=== PATIENT | female | born 1975 | race Caucasian/White ===

== ENCOUNTER 2017-01-30 13:58 | Emergency (ER) | payer MEDICARE, MEDICAID ==
[~2017-01-30] VITALS: Ht 160 cm; Wt 65.8 kg
[~2017-01-30 13:58] MED LIST: CLAR-19 PO; EES; HYDR-34; MORPHINE; NAPR-243; TRM50T
[2017-01-30] MEDS ORDERED: DIAZEPAM INJ 10 MG/2 ML (VALIUM) SYR IV STA (14:10)
[2017-01-30] MEDS ORDERED: DIAZEPAM INJ 10 MG/2 ML (VALIUM) SYR ONE (14:16)
[2017-01-30 14:22] LABS: BASOPHILS # (AUTO) 0.1 10^3/uL (0.0-0.1); BASOPHILS % (AUTO) 1 % (0-10); EOSINOPHILS # (AUTO) 0.2 10^3/uL (0.0-0.3); EOSINOPHILS % (AUTO) 2 % (0-10); LYMPHOCYTES # (AUTO) 2.7 X 10^3 (1.0-4.0); LYMPHOCYTES % (AUTO) 29 % (12-44); MEAN CORPUSCULAR HEMOGLOBIN 33 PG (25-34); MEAN CORPUSCULAR HGB CONC 34 G/DL (32-36); MEAN CORPUSCULAR VOLUME 95 FL (80-99); MEAN PLATELET VOLUME 10.8 FL (7.4-10.4); MONOCYTES # (AUTO) 0.6 X 10^3 (0.0-1.0); MONOCYTES % (AUTO) 7 % (0-12); NEUTROPHILS # (AUTO) 5.6 X 10^3 (1.8-7.8); NEUTROPHILS % (AUTO) 61 % (42-75); PLATELET COUNT 305 10^3/uL (130-400); RED BLOOD COUNT 4.37 10^6/uL (4.35-5.85); WHITE BLOOD COUNT 9.2 10^3/uL (4.3-11.0)
--- NOTE | 2017-01-30 14:24 | ED Neurological Problem ---
General Chief Complaint: Neurological Problems Stated Complaint: SEIZURE Nursing Triage Note: to ED 8 by [facility] with reports of possible seizure activity. Patient denies seizure history, but reports that she feels anxious right now. 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 Nursing Sepsis Screen: No Definite Risk History of Present Illness Time seen by provider: 14:00 Initial Comments Evaluation post seizure. The patient reports that she had similar activity approximately one month ago, evaluated by EMS but was not transported to the hospital per patient refusal. She denies a history of seizure disorder. She does report increased anxiety. There was no incontinence at the time of the seizure. It was witnessed by her daughter. EMS reports that she was lying on the floor upon their arrival. The patient denies knowing how she got to the floor. She denies any pain at this time. She continues to have anxiety at this time and nausea, there are right leg spasms that she reports is secondary to anxiety. Timing/Duration: 1 hour Severity: mild Associated Symptoms: No confusion, No fatigue, No fever/chills, No insomnia, No loss of consciousness, muscle spasms (right lower extremity), nausea/vomiting , No numbness in legs/feet, No paresthesia, No ringing in ears, seizures, No sleepy, No slurred speech, No tingling in legs/feet, No trouble walking, No vision changes, No weakness Allergies and Home Medications Allergies Coded Allergies: Penicillins (Verified Allergy, Unknown, 10/07/06) Home Medications Alprazolam 0.25 Mg Tablet, 0.25 MG PO Q8H PRN for ANXIETY, #15 Ref 0 Prescribed by: ALANNA FERREIRA on 01/30/17 1548 Tramadol Hcl 50 Mg Tab, (Reported) Constitutional: no symptoms reported, see HPI Eyes: No Symptoms Reported, See HPI Ears, Nose, Mouth, Throat: no symptoms reported, see HPI Respiratory: no symptoms reported, see HPI Cardiovascular: no symptoms reported, see HPI Gastrointestinal: see HPI, No abdominal pain, No constipation, No diarrhea, nausea, No vomiting Genitourinary: no symptoms reported, see HPI Musculoskeletal: no symptoms reported, see HPI Skin: no symptoms reported, see HPI Psychiatric/Neurological: See HPI, Anxiety Endocrine: No Symptoms Reported, See HPI Hematologic/Lymphatic: No Symptoms Reported, See HPI All Other Systems Reviewed Negative Unless Noted: Yes Past Fxjkcwq-Qyfqoi-Qiigja Hx Patient Social History Alcohol Use: Past History Recreational Drug Use: No Smoking Status: Current Everyday Smoker Type Used: Cigarettes 2nd Hand Smoke Exposure: Yes Recent Foreign Travel: No Contact w/Someone Who Travel: No Recent Infectious Disease Expo: No Recent Hopitalizations: No Immunizations Up To Date Tetanus Booster (TDap): Less than 5yrs Seasonal Allergies Seasonal Allergies: No Surgeries Surgeries: Tubal Ligation Musculoskeletal Hx Musculoskeletal Disorders: Yes (scoliosis) Reviewed Nursing Assessment Reviewed/Agree w Nursing PMH: Yes Physical Exam Vital Signs Vital Sign - Last 12Hours 01/30/17 14:05 Temp 96.9 Pulse 98 Resp 22 B/P (MAP) 135/101 Pulse Ox 98 O2 Delivery Room Air Capillary Refill : Less Than 3 Seconds General Appearance: WD/WN, no apparent distress HEENT: PERRL/EOMI, normal ENT inspection Neck: non-tender, full range of motion, supple, normal inspection, No lymphadenopathy (R), No lymphadenopathy (L) Respiratory: chest non-tender, lungs clear, normal breath sounds, no respiratory distress Cardiovascular: normal peripheral pulses, regular rate, rhythm, no murmur, tachycardia Gastrointestinal: normal bowel sounds, non tender, soft, no organomegaly, no pulsatile mass Back: normal inspection, no CVA tenderness, no vertebral tenderness Extremities: normal range of motion, non-tender, normal inspection, other ( spasms right lower extremity) 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 nml as tested (grossly intact), no motor/ sensory deficits, alert, normal mood/affect, oriented x 3 Crainal Nerves: normal hearing, normal speech, PERRL, No facial asymmetry, No facial droop Coordination/Gait: normal finger to nose, normal gait, negative Romberg's sign , No abnormal gait Motor/Sensory: no motor deficit, no sensory deficit, no pronator drift, negative Babinski's sign Skin: normal color, warm/dry Lymphatic: no adenopathy Progress/Results/Core Measures Results/Orders Lab Results Laboratory Tests Test 01/30/17 14:15 Range/Units White Blood Count 9.2 4.3-11.0 10^3/uL Red Blood Count 4.37 4.35-5.85 10^6/uL Hemoglobin 14.2 11.5-16.0 G/DL Hematocrit 42 35-52 % Mean Corpuscular Volume 95 80-99 FL Mean Corpuscular Hemoglobin 33 25-34 PG Mean Corpuscular Hemoglobin Concent 34 32-36 G/DL Red Cell Distribution Width 12.0 10.0-14.5 % Platelet Count 305 130-400 10^3/uL Mean Platelet Volume 10.8 H 7.4-10.4 FL Neutrophils (%) (Auto) 61 42-75 % Lymphocytes (%) (Auto) 29 12-44 % Monocytes (%) (Auto) 7 0-12 % Eosinophils (%) (Auto) 2 0-10 % Basophils (%) (Auto) 1 0-10 % Neutrophils # (Auto) 5.6 1.8-7.8 X 10^3 Lymphocytes # (Auto) 2.7 1.0-4.0 X 10^3 Monocytes # (Auto) 0.6 0.0-1.0 X 10^3 Eosinophils # (Auto) 0.2 0.0-0.3 10^3/uL Basophils # (Auto) 0.1 0.0-0.1 10^3/uL Sodium Level 139 135-145 MMOL/L Potassium Level 3.4 L 3.6-5.0 MMOL/L Chloride Level 105 98-107 MMOL/L Carbon Dioxide Level 24 21-32 MMOL/L Anion Gap 10 5-14 MMOL/L Blood Urea Nitrogen 13 7-18 MG/DL Creatinine 0.89 0.60-1.30 MG/DL Estimat Glomerular Filtration Rate > 60 BUN/Creatinine Ratio 15 Glucose Level 116 H 70-105 MG/DL Calcium Level 9.5 8.5-10.1 MG/DL Total Bilirubin 0.2 0.1-1.0 MG/DL Aspartate Amino Transf (AST/SGOT) 18 5-34 U/L Alanine Aminotransferase (ALT/SGPT) 19 0-55 U/L Alkaline Phosphatase 44 40-136 U/L Total Protein 7.0 6.4-8.2 G/DL Albumin 4.1 3.2-4.5 G/DL Thyroid Stimulating Hormone (TSH) 3.29 0.35-4.94 UIU/ML Serum Alcohol < 10 <10 MG/DL My Orders Orders - ALANNA FERREIRA Alcohol (01/30/17 14:10) Cbc With Automated Diff (01/30/17 14:10) Comprehensive Metabolic Panel (01/30/17 14:10) Thyroid Stimulating Hormone (01/30/17 14:10) Diazepam Injection (Valium Injection) (01/30/17 14:10) Diazepam Injection (Valium Injection) (01/30/17 14:16) Vital Signs/I&O Vital Sign - Last 12Hours 01/30/17 01/30/17 14:05 15:54 Temp 96.9 Pulse 98 73 Resp 22 18 B/P (MAP) 135/101 Pulse Ox 98 98 O2 Delivery Room Air Blood Pressure Mean: 112 Progress Note : Time: 14:00 Progress Note Initial evaluation completed, will obtain lab workup and reevaluate. Valium 2 mg IV for anxiety and muscle spasms. 1445 labs all within normal limits, patient ambulated to bathroom unable to provide urine sample. Gait steady, negative Romberg. 1515 patient has strength 2 glasses of water, still unable to provide urine sample. No seizure activity and no longer having spasms in the right lower extremity. Discussed plans discharge home she will follow-up with her primary care provider for further evaluation of these seizures. Departure Impression Impression: Primary Impression: Seizure Disposition: HOME, SELF-CARE Condition: Improved Departure-Patient Inst. Decision time for Depature: 15:30 Referrals: NO,LOCAL PHYSICIAN (PCP/Family) Primary Care Physician Patient Instructions: Seizures, Adult (DC) Add. Discharge Instructions: Follow-up with primary care provider for seizure treatment. Return to emergency department for seizure activity, chest pain, or new problems. 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 All discharge instructions reviewed with patient and/or family. Voiced understanding. Scripts Alprazolam (Xanax) 0.25 Mg Tablet 0.25 MG PO Q8H Y for ANXIETY, #15 TAB 0 Refills Prov: JHONALANNA 01/30/17 ALANNA FERREIRA January 30, 2017 14:24
[2017-01-30 14:44] LABS: ALANINE AMINOTRANSFERASE 19 U/L (0-55); ALBUMIN 4.1 G/DL (3.2-4.5); ANION GAP 10 MMOL/L (5-14); ASPARTATE AMINO TRANSFERASE 18 U/L (5-34); BILIRUBIN,TOTAL 0.2 MG/DL (0.1-1.0); BLOOD UREA NITROGEN 13 MG/DL (7-18); BUN/CREATININE RATIO 15; CALCIUM 9.5 MG/DL (8.5-10.1); CARBON DIOXIDE 24 MMOL/L (21-32); CHLORIDE 105 MMOL/L (98-107); CREATININE SERUM 0.89 MG/DL (0.60-1.30); GFR ESTIMATED > 60; GLUCOSE 116 MG/DL (70-105); POTASSIUM 3.4 MMOL/L (3.6-5.0); SODIUM 139 MMOL/L (135-145)
[2017-01-30 14:50] LABS: ALCOHOL < 10 MG/DL (<10)
[2017-01-30 15:03] LABS: THYROID STIMULATING HORMONE 3.29 UIU/ML (0.35-4.94)
[2017-01-30] MEDS ORDERED: ALPR0.25 PO (15:48)
[2017-01-30 15:54] VITALS: BP 123/93
== END 2017-01-30 15:54 | disposition home or self-care (01) ==
LOC: EDUNIT# 13:58 → ER 14:00
DX: G40.909 Epilepsy, unspecified, not intractable, without status epilepticus (principal); F41.9 Anxiety disorder, unspecified; R11.0 Nausea; F17.210 Nicotine dependence, cigarettes, uncomplicated
CPT/HCPCS: 36415; 80053; 80320; 84443; 85025; 96374; 99283

== ENCOUNTER 2019-05-22 14:01 | Emergency (ER) | payer MEDICARE, MEDICAID ==
[~2019-05-22] VITALS: Ht 160 cm; Wt 65.8 kg
[~2019-05-22 14:01] MED LIST changes: +ALPR0.25 PO
--- NOTE | 2019-05-22 14:11 | ED General ---
General Chief Complaint: General Problems/Pain Stated Complaint: WITHDRAWL FROM MEDICATION Nursing Triage Note: Patient reports running out of tramadol yesterday and having n/v/d today Nursing Sepsis Screen: No Definite Risk Source of Information: Patient Exam Limitations: No Limitations History of Present Illness Date Seen by Provider: May 22, 2019 Time Seen by Provider: 14:09 Initial Comments To ER with nausea, muscle aches, diarrhea, headache. States that she took her last ultram yesterday, states she's been taking extra so she ran out early. She takes these for scoliosis. She had a quantity of 240 of them, a 30 day supply filled on 04/27/19. Timing/Duration: 1-2 Days Severity: Moderate Associated Systoms: Headaches, Nausea/Vomiting Allergies and Home Medications Allergies Coded Allergies: Penicillins (Verified Allergy, Unknown, 10/07/06) Home Medications Alprazolam 0.25 Mg Tablet, 0.25 MG PO Q8H PRN for ANXIETY Prescribed by: ALANNA FERREIRA on 01/30/17 6758 Patient Home Medication List Home Medication List Reviewed: Yes Review of Systems Review of Systems Constitutional: see HPI EENTM: see HPI Respiratory: no symptoms reported Cardiovascular: no symptoms reported Genitourinary: no symptoms reported Musculoskeletal: no symptoms reported Skin: no symptoms reported Past Htbddde-Mwqblv-Dfbveq Hx Patient Social History Alcohol Use: Denies Use Recreational Drug Use: No Type Used: Cigarettes 2nd Hand Smoke Exposure: Yes Recent Foreign Travel: No Contact w/Someone Who Travel: No Recent Infectious Disease Expo: No Recent Hopitalizations: No Immunizations Up To Date Tetanus Booster (TDap): Less than 5yrs Seasonal Allergies Seasonal Allergies: No Past Medical History Surgeries: Yes Tubal Ligation Respiratory: No Cardiac: No Neurological: No Genitourinary: No Gastrointestinal: No Musculoskeletal: No Endocrine: No HEENT: No Cancer: No Psychosocial: No Integumentary: No Physical Exam Vital Signs Vital Signs - First Documented 05/22/19 14:07 Temp 98.2 Pulse 97 Resp 18 B/P (MAP) 185/118 (140) Pulse Ox 100 Capillary Refill : Less Than 3 Seconds Height, Weight, BMI Height: 5'3.00" Weight: 145lbs. oz. 65.072016lm; BMI Method:Stated General Appearance: No Apparent Distress, WD/WN, Other (piloerection, tachycardia noted) Eyes: Bilateral Eye Normal Inspection, Bilateral Eye PERRL, Bilateral Eye EOMI HEENT: PERRL/EOMI, TMs Normal Neck: Full Range of Motion, Normal Inspection Respiratory: No Accessory Muscle Use, No Respiratory Distress Cardiovascular: Normal Peripheral Pulses, Tachycardia (slightly tachycardic at about 100-105) Gastrointestinal: Normal Bowel Sounds, Non Tender, Soft Extremity: Normal Capillary Refill, Normal Inspection Neurologic/Psychiatric: Alert, Oriented x3 Skin: Normal Color, Warm/Dry Progress/Results/Core Measures Suspected Sepsis Recent Fever Within 48 Hours: No Infection Criteria Present: None New/Unexplained Altered Menta: No Sepsis Screen: No Definite Risk SIRS Temperature:98.2 Pulse: 97 Respiratory Rate: 18 Blood Pressure 185 /118 Mean: 140 Results/Orders My Orders Orders - KINGSLEY GARDNER APRN Hydroxyzine Cap/Tab (Vistaril) (05/22/19 14:15) Ondansetron Oral Dissolve Tab (Zofran (05/22/19 14:15) Clonidine Tablet (Catapres Tablet) (05/22/19 14:15) Vital Signs/I&O 05/22/19 14:07 Temp 98.2 Pulse 97 Resp 18 B/P (MAP) 185/118 (140) Pulse Ox 100 Capillary Refill : Less Than 3 Seconds Blood Pressure Mean: 140 Departure Impression Primary Impression: Withdrawal from opioids Disposition: 01 HOME, SELF-CARE Condition: Stable Departure-Patient Inst. Referrals: SIMONE EDMONDSON DO (PCP/Family) Primary Care Physician KINGSLEY GARDNER APRN May 22, 2019 14:11
[2019-05-22] MEDS ORDERED: ONDANSETRON 4 MG (ZOFRAN) ORAL DISSOLVE TAB PO ONE (14:15)
[2019-05-22] MEDS ORDERED: cloNIDine 0.1 MG (CATAPRES) TAB PO ONE (14:15)
[2019-05-22] MEDS ORDERED: hydrOXYzine (VISTARIL/ATARAX) 25 MG capsule/tablet PO ONE (14:15)
[2019-05-22 15:03] VITALS: BP 158/100
== END 2019-05-22 15:05 | disposition home or self-care (01) ==
LOC: EDUNIT# 14:01 → ER 14:02
DX: F11.23 Opioid dependence with withdrawal (principal); Z88.0 Allergy status to penicillin; Z77.22 Contact with and (suspected) exposure to environmental tobacco smoke (acute) (chronic); Z98.51 Tubal ligation status
CPT/HCPCS: 99283

== ENCOUNTER 2021-12-08 23:12 | Emergency (ER) | payer MEDICARE, MEDICAID ==
[~2021-12-08] VITALS: Ht 160 cm; Wt 66.0 kg
[2021-12-08] MEDS ORDERED: CLN.1T (23:33)
[2021-12-08] MEDS ORDERED: LISI20TA26 (23:33)
[2021-12-08] MEDS ORDERED: HYDR-3820 (23:33)
--- NOTE | 2021-12-08 23:58 | ED Cardiac General ---
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 Source: patient Exam Limitations: no limitations History of Present Illness Date Seen by Provider: Dec 08, 2021 Time Seen by Provider: 23:28 Initial Comments Patient and her significant other present to the ER by private conveyance with chief complaint that when she woke up she felt that her heart was pounding in h er chest and she took her blood pressure and it was elevated 160s systolic. She is not taking her lisinopril routinely. She was only recently started on blood pressure medicines by Dr. Edmondson. She was also started on clonidine to be used as needed for blood pressure over 170. She remembers taking 1 this morning. She took another 1 at 1030 tonight and by the time she arrived here her blood pressure is much better she is no longer having any palpitations and has not had any chest pains numbness tingling shortness of breath. No history of coronary disease. She only recently was diagnosed with high blood pressure. She has been worked up several times for her scoliosis. No nausea or vomiting. Her symptoms are gone by the time the provider visited with her. 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 Allergies and Home Medications Allergies Coded Allergies: Penicillins (Verified Allergy, Unknown, 10/07/06) Patient Home Medication List Home Medication List Reviewed: Yes Clonidine HCl (Clonidine HCl) 0.1 Mg Tablet, (Reported) Entered as Reported by: ELLIOT ROLON on 12/08/212332 Last Action: New Order Hydrocodone/Acetaminophen (Hydrocodone-Acetamin 10-325 mg) 1 Each Tablet, (Reported) Entered as Reported by: ELLIOT ROLON on 12/08/212332 Last Action: New Order Lisinopril (Lisinopril) 20 Mg Tablet, (Reported) Entered as Reported by: ELLIOT ROLON on 12/08/212332 Last Action: New Order Discontinued Medications Alprazolam (Xanax) 0.25 Mg Tablet, 0.25 MG PO Q8H PRN for ANXIETY Discontinued Reason: Duplicate Order Prescribed by: ALANNA FERREIRA on 01/30/17 0178 Last Action: Discontinued Tramadol Hcl (Ultram) 50 Mg Tab, (Reported) Discontinued Reason: Duplicate Order Entered as Reported by: TRACI SHUBHAM on 07/04/09 0042 Last Action: Discontinued Review of Systems Review of Systems Constitutional: No chills, No diaphoresis EENTM: No Blurred Vision, No Double Vision Respiratory: Denies Cough, Denies Shortness of Air Cardiovascular: Denies Chest Pain, Denies Edema, Denies Irregular Heart Rate, Denies Lightheadedness Gastrointestinal: Denies Constipated, Denies Diarrhea, Denies Nausea Genitourinary: Denies Burning, Denies Discharge Musculoskeletal: No back pain, No joint pain All Other Systems Reviewed Negative Unless Noted: Yes Past Czvfbpq-Wlpeza-Lscann Hx Patient Social History Tobacco Use?: Yes Tobacco type used: Cigarettes Substance use?: No Alcohol Use?: No Pt feels they are or have been: No Immunizations Up To Date Tetanus Booster (TDap): Less than 5yrs Seasonal Allergies Seasonal Allergies: No Past Medical History Surgery/Hospitalization HX: scoliosis, htn Surgeries: Yes Tubal Ligation Respiratory: No Cardiac: No Neurological: No Genitourinary: No Gastrointestinal: No Musculoskeletal: No Endocrine: No HEENT: No Cancer: No Psychosocial: No Integumentary: No Physical Exam Vital Signs Vital Signs - First Documented 12/08/21 23:25 Temp 36.0 Pulse 86 Resp 16 B/P (MAP) 164/114 (131) Pulse Ox 99 O2 Delivery Room Air Capillary Refill : Less Than 3 Seconds Height, Weight, BMI Height: 5'3.00" Weight: 145lbs. oz. 65.965158rk; 25.00 BMI Method:Stated General Appearance: No Apparent Distress, WD/WN HEENT: PERRL/EOMI, Pharynx Normal, Moist Mucous Membranes Neck: Full Range of Motion, Normal Inspection Respiratory: No Accessory Muscle Use, No Respiratory Distress Cardiovascular: Regular Rate, Rhythm, No Edema, Normal Peripheral Pulses Extremity: Normal Inspection, No Pedal Edema Neurologic/Psychiatric: Alert, Oriented x3 Progress/Results/Core Measures Results/Orders Vital Signs/I&O 12/08/21 23:25 Temp 36.0 Pulse 86 Resp 16 B/P (MAP) 164/114 (131) Pulse Ox 99 O2 Delivery Room Air Blood Pressure Mean: 131 Progress Progress Note : Time: 23:56 Progress Note The patient is asymptomatic at this time and is ready to go home. We did explain to her that lisinopril should be taken on a daily basis. Her blood pressure is 140 over 90s upon arrival of this provider. Was suggested that she would get better control if she takes lisinopril on a regular basis. She may be having some rebound hypertension related to the clonidine so we suggest that she strictly use the lisinopril on a routine basis and follow-up with Dr. Edmondson. Return precautions were discussed. Questions were answered. Departure Impression Primary Impression: Hypertension Qualified Codes: I10 - Essential (primary) hypertension Disposition: HOME, SELF-CARE Condition: Stable Departure-Patient Inst. Decision time for Depature: 23:55 Referrals: SIMONE EDMONDSON DO (PCP/Family) Primary Care Physician Patient Instructions: High Blood Pressure (DC), Medicines for High Blood Pressure Add. Discharge Instructions: I would suggest she start taking lisinopril 20 mg every day. This can be done in the morning or at night. After a week of taking this consistently start taking your blood pressure first thing when you wake up before you start the day 3-5 times a week. Record this number and take it with you to your follow-up appointment in a couple weeks with Dr. Edmondson. You may use the clonidine as needed if your blood pressure goes up despite the lisinopril. Return to the nearest ER promptly if you are having chest pain, shortness of air, other worrisome symptoms. All discharge instructions reviewed with patient and/or family. Voiced understanding. COLE CONNORS Dec 08, 2021 23:58
[2021-12-09 00:01] VITALS: BP 126/96
== END 2021-12-09 00:03 | disposition home or self-care (01) ==
LOC: EDUNIT# 23:12 → ER 23:14
DX: I10 Essential (primary) hypertension (principal); Z72.0 Tobacco use
CPT/HCPCS: 99281

== ENCOUNTER 2022-10-20 15:58 | Emergency (ER) | payer MEDICARE, MEDICAID ==
[~2022-10-20] VITALS: Ht 160 cm; Wt 73.4 kg
[~2022-10-20 15:58] MED LIST changes: +CLN.1T; +HYDR-3820; +LISI20TA26
[2022-10-20] MEDS ORDERED: methylPREDNISolone 125 MG (Solu-MEDROL) VIAL IV STA (16:27)
[2022-10-20] MEDS ORDERED: RT-ALBUTEROL/IPRATROPIUM 3 ML (DUONEB) VIAL INH ONE (16:30)
--- NOTE | 2022-10-20 16:33 | ED Cough/URI ---
General Chief Complaint: Cough/Cold/Flu Symptoms Stated Complaint: COUGH/SOA Nursing Triage Note: PT AMB TO RM 10 WITH CC OF SOA, COUGH, AND BODYACHES SINCE Sep. PT WAS SEEN AT THE CLINIC ON FRIDAY, WAS PX ANTIBIOTIC AND PREDISONE. DENIES BEING TESTED AT CLINIC FOR COVID AND FLU. PT HAS STRUGGLED WITH SOA FOR SOME TIME NOW. Source: patient Exam Limitations: no limitations History of Present Illness Date Seen by Provider: Oct 20, 2022 Time Seen by Provider: 16:21 Initial Comments 47-year-old female presents to the ED with complaints of shortness of air starting 10/11. States that she also had a fever at that time. States she saw her provider on Friday and was given Z-Dixon and steroid. States she is finished the Z-Dixon and steroid, but does not feel any better. States she has a cough, it is worse at night. Also complains of a headache, and body aches. Denies chest pain, abdominal pain, nausea/vomiting. States she is smoked for 20 years, has not been diagnosed with COPD. States she currently has scoliosis and hypertension, takes lisinopril, hydrocodone, and has an inhaler. States she is used her inhaler couple times this week, normally only uses it 1-2 times per month. Allergies and Home Medications Allergies Coded Allergies: Penicillins (Verified Allergy, Unknown, 10/07/06) Patient Home Medication List Home Medication List Reviewed: Yes Clonidine HCl (Clonidine HCl) 0.1 Mg Tablet, (Reported) Entered as Reported by: ELLIOT ROLON on 12/08/212332 Hydrocodone/Acetaminophen (Hydrocodone-Acetamin 10-325 mg) 1 Each Tablet, (Reported) Entered as Reported by: ELLIOT ROLON on 12/08/212332 Lisinopril (Lisinopril) 20 Mg Tablet, (Reported) Entered as Reported by: ELLIOT ROLON on 12/08/212332 Review of Systems Review of Systems Constitutional: see HPI Past Serjywr-Drqnyj-Ysnloh Hx Patient Social History Tobacco Use?: Yes Tobacco type used: Cigarettes Smoking Status: Current Everyday Smoker Substance use?: No Alcohol Use?: No Pt feels they are or have been: No Immunizations Up To Date Tetanus Booster (TDap): Less than 5yrs Seasonal Allergies Seasonal Allergies: No Past Medical History Surgery/Hospitalization HX: scoliosis, htn Surgeries: Yes Tubal Ligation Respiratory: No Cardiac: No Neurological: No Genitourinary: No Gastrointestinal: No Musculoskeletal: No Endocrine: No HEENT: No Cancer: No Psychosocial: No Integumentary: No Physical Exam Vital Signs - First Documented 10/20/22 16:08 Temp 37.0 Pulse 108 Resp 28 B/P (MAP) 186/113 (137) Pulse Ox 94 O2 Delivery Room Air Capillary Refill : Less Than 3 Seconds Height: 5'3.00" Weight: 145lbs. oz. 65.092187be; 28.00 BMI Method:Stated General Appearance: WD/WN, mild distress Neck: supple, normal inspection Respiratory: respiratory distress (Mild distress), other (Coarse lung sounds) Cardiovascular: regular rate, rhythm, no edema, no gallop, no JVD, no murmur Extremities: normal range of motion, normal inspection Neurologic/Psychiatric: alert, normal mood/affect, oriented x 3 Skin: normal color, warm/dry Progress/Results/Core Measures Suspected Sepsis SIRS Temperature: Pulse: 108 Respiratory Rate: 28 Laboratory Tests 10/20/22 16:39: White Blood Count 20.7H Blood Pressure 186 /113 Mean: 137 Laboratory Tests 10/20/22 16:39: Creatinine 0.82, Platelet Count 499H, Total Bilirubin 0.4 Results/Orders Lab Results Laboratory Tests Test 10/20/22 16:12 10/20/22 16:39 Range/Units Influenza Type A (RT-PCR) Not Detected Not Detecte Influenza Type B (RT-PCR) Not Detected Not Detecte SARS-CoV-2 RNA (RT-PCR) Not Detected Not Detecte White Blood Count 20.7 H 4.3-11.0 10^3/uL Red Blood Count 4.53 3.80-5.11 10^6/uL Hemoglobin 14.8 11.5-16.0 g/dL Hematocrit 42 35-52 % Mean Corpuscular Volume 92 80-99 fL Mean Corpuscular Hemoglobin 33 25-34 pg Mean Corpuscular Hemoglobin Concent 36 32-36 g/dL Red Cell Distribution Width 11.7 10.0-14.5 % Platelet Count 499 H 130-400 10^3/uL Mean Platelet Volume 10.2 9.0-12.2 fL Immature Granulocyte % (Auto) 5 % Neutrophils (%) (Auto) 68 42-75 % Lymphocytes (%) (Auto) 18 12-44 % Monocytes (%) (Auto) 7 0-12 % Eosinophils (%) (Auto) 1 0-10 % Basophils (%) (Auto) 1 0-10 % Neutrophils # (Auto) 14.1 H 1.8-7.8 10^3/uL Lymphocytes # (Auto) 3.8 1.0-4.0 10^3/uL Monocytes # (Auto) 1.5 H 0.0-1.0 10^3/uL Eosinophils # (Auto) 0.2 0.0-0.3 10^3/uL Basophils # (Auto) 0.1 0.0-0.1 10^3/uL Immature Granulocyte # (Auto) 1.1 H 0.0-0.1 10^3/uL Neutrophils % (Manual) 75 % Lymphocytes % (Manual) 18 % Monocytes % (Manual) 4 % Myelocytes % 2 % Band Neutrophils 1 % Blood Morphology Comment NORMAL D-Dimer 0.36 0.00-0.49 UG/ML Sodium Level 133 L 135-145 MMOL/L Potassium Level 3.7 3.6-5.0 MMOL/L Chloride Level 97 L 98-107 MMOL/L Carbon Dioxide Level 22 21-32 MMOL/L Anion Gap 14 5-14 MMOL/L Blood Urea Nitrogen 8 7-18 MG/DL Creatinine 0.82 0.60-1.30 MG/DL Estimat Glomerular Filtration Rate 89 BUN/Creatinine Ratio 10 Glucose Level 192 H 70-105 MG/DL Calcium Level 9.9 8.5-10.1 MG/DL Corrected Calcium 9.5 8.5-10.1 MG/DL Total Bilirubin 0.4 0.1-1.0 MG/DL Aspartate Amino Transf (AST/SGOT) 13 5-34 U/L Alanine Aminotransferase (ALT/SGPT) 27 0-55 U/L Alkaline Phosphatase 60 40-136 U/L Total Protein 7.8 6.4-8.2 GM/DL Albumin 4.5 3.2-4.5 GM/DL My Orders Orders - NEWTON LAMB APRN Covid 19 Inhouse Test (10/20/22 16:20) Influenza A And B By Pcr (10/20/22 16:20) Cbc With Automated Diff (10/20/22 16:27) Comprehensive Metabolic Panel (10/20/22 16:27) O2 (10/20/22 16:27) Ed Iv/Invasive Line Start (10/20/22 16:27) Monitor-Rhythm Ecg Trace Only (10/20/22 16:27) Chest 1 View, Ap/Pa Only (10/20/22 16:27) Albuterol/Ipra Inhalation Soln (Duoneb I (10/20/22 16:30) Methylprednisolone Sod Succ (Solu-Medrol (10/20/22 16:27) Svn Small Volume Nebulizer (10/20/22 16:27) Manual Differential (10/20/22 16:39) Fibrin Degradation Products (10/20/22 17:32) Medications Given in ED Current Medications Medications Dose Ordered Sig/Joanna Route Start Time Stop Time Status Last Admin Dose Admin Albuterol/ Ipratropium 3 ml ONCE ONCE INH 10/20/22 16:30 10/20/22 16:31 DC 10/20/22 16:55 3 ML Vital Signs/I&O 10/20/22 10/20/22 16:08 16:55 Temp 37.0 Pulse 108 Resp 28 B/P (MAP) 186/113 (137) Pulse Ox 94 99 O2 Delivery Room Air Room Air Capillary Refill : Less Than 3 Seconds Blood Pressure Mean: 137 Progress Note : Time: 16:32 Progress Note Patient seen and evaluated, sitting on edge of bed, mild distress. Based on exam and symptoms, differential diagnosis includes but is not limited to upper respiratory infection, COVID/flu, COPD exacerbation. Work-up initiated CBC, CMP, chest x-ray, Solu-Medrol and DuoNeb ordered. Departure Impression Primary Impression: Bronchitis Disposition: 01 HOME, SELF-CARE Condition: Stable Departure-Patient Inst. Decision time for Depature: 18:14 Referrals: SIMONE EDMONDSON DO (PCP/Family) Primary Care Physician Patient Instructions: Bronchitis, Adult ED Add. Discharge Instructions: Take Medrol Dosepak as prescribed. Use inhaler as needed for shortness of breath, wheezing, 2 puffs every 4 hours as needed. Follow-up with a primary care provider. Return if you are needing your inhaler more than every 4 hours, you develop a fever, worsening shortness of air, dizziness or lightheadedness, confusion, or any other new, concerning, or worsening symptoms. All discharge instructions reviewed with patient and/or family. Voiced understanding. Scripts Methylprednisolone (Methylprednisolone Dose Pack) 4 Mg Tablet 4 MG PO UD for 6 Days, #21 TAB 0 Refills FOLLOW DOSE PACK INSTRUCTIONS Prov: NEWTON LAMB APRN 10/20/22 NEWTON LAMB APRN Oct 20, 2022 16:33
[2022-10-20 16:45] LABS: BASOPHILS # (AUTO) 0.1 10^3/uL (0.0-0.1); BASOPHILS % (AUTO) 1 % (0-10); EOSINOPHILS # (AUTO) 0.2 10^3/uL (0.0-0.3); EOSINOPHILS % (AUTO) 1 % (0-10); HEMATOCRIT 42 % (35-52); HEMOGLOBIN 14.8 g/dL (11.5-16.0); LYMPHOCYTES # (AUTO) 3.8 10^3/uL (1.0-4.0); LYMPHOCYTES % (AUTO) 18 % (12-44); MEAN CORPUSCULAR HEMOGLOBIN 33 pg (25-34); MEAN CORPUSCULAR HGB CONC 36 g/dL (32-36); MEAN CORPUSCULAR VOLUME 92 fL (80-99); MEAN PLATELET VOLUME 10.2 fL (9.0-12.2); MONOCYTES # (AUTO) 1.5 10^3/uL (0.0-1.0); MONOCYTES % (AUTO) 7 % (0-12); NEUTROPHILS # (AUTO) 14.1 10^3/uL (1.8-7.8); NEUTROPHILS % (AUTO) 68 % (42-75); PLATELET COUNT 499 10^3/uL (130-400); WHITE BLOOD COUNT 20.7 10^3/uL (4.3-11.0)
[2022-10-20 17:02] LABS: ALBUMIN 4.5 GM/DL (3.2-4.5); POTASSIUM 3.7 MMOL/L (3.6-5.0)
[2022-10-20 17:03] LABS: CALCIUM 9.9 MG/DL (8.5-10.1)
[2022-10-20 17:04] LABS: TOTAL PROTEIN 7.8 GM/DL (6.4-8.2)
[2022-10-20 17:06] LABS: BILIRUBIN,TOTAL 0.4 MG/DL (0.1-1.0)
[2022-10-20 17:08] LABS: CREATININE SERUM 0.82 MG/DL (0.60-1.30)
[2022-10-20 17:09] LABS: BAND NEUTROPHILS 1 %; LYMPHOCYTES % (MANUAL) 18 %; MONOCYTES % (MANUAL) 4 %; MYELOCYTES % 2 %; NEUTROPHILS % (MANUAL) 75 %
[2022-10-20 17:10] LABS: RBC MORPH NORMAL
--- NOTE | 2022-10-20 17:26 | Diagnostic Imaging Report ---
HISTORY: Shortness of breath and cough. TECHNIQUE: Frontal view of the chest. COMPARISON: None. FINDINGS: Lung volumes are normal. No consolidation is seen. There is no pleural effusion or pneumothorax. The cardiac silhouette is normal in size. There is marked S-shaped scoliotic curvature of the thoracolumbar spine. IMPRESSION: No acute pulmonary abnormality. Dictated by: Dictated on workstation # [id number]
[2022-10-20] MEDS ORDERED: METH4TAB11 PO (18:19)
[2022-10-20 18:31] VITALS: BP 126/93
== END 2022-10-20 18:33 | disposition home or self-care (01) ==
LOC: EDUNIT# 15:58 → ER 16:00
DX: J40 Bronchitis, not specified as acute or chronic (principal); I10 Essential (primary) hypertension; M41.9 Scoliosis, unspecified; F17.210 Nicotine dependence, cigarettes, uncomplicated; Z20.822 Contact with and (suspected) exposure to COVID-19; Z28.310 Unvaccinated for COVID-19; Z79.899 Other long term (current) drug therapy
CPT/HCPCS: 36415; 71045; 80053; 85007; 85027; 85379; 87636; 94640

== ENCOUNTER 2023-08-06 22:28 | Emergency (ER) | payer MEDICARE, MEDICAID ==
[~2023-08-06 22:28] MED LIST changes: +METH4TAB11 PO
--- NOTE | 2023-08-06 22:57 | ED General ---
General Chief Complaint: General Problems/Pain Stated Complaint: EAR RINGING, ARM TINGLING, SHAKY Nursing Triage Note: TO ED VIA POV AND AMBULATORY TO ROOM 9. PT IS CRYING AND STATING, "I HAVE NERVE PAIN". ALSO C/O RINGING IN EARS SINCE THIS MORNING. PT REPORTS TAKING BUSPAR AT 2100. PT HAS NOT TAKEN HYDROCODONE SINCE THIS MORNING. Source of Information: Patient History of Present Illness Date Seen by Provider: Aug 06, 2023 Time Seen by Provider: 22:40 Initial Comments PT ARRIVES VIA POV FROM HOME PT STATES "I HAVE NERVE PAIN IN MY ARMS AND HANDS" --THIS IS CHRONIC PROBLEM FOR A LONG TIME, AND IS NO DIFFERENT TONIGHT--STATES SHE HAS SCOLIOSIS AND HAS CHRONIC NECK AND BACK PAIN AND HAS HAD MRI'S IN THE PAST SHE IS PRESCRIBED HYDROCODONE AND SHE TOOK 1 THIS MORNING, SHE HAS NOT TAKEN ANYTHING ELSE FOR PAIN TODAY STATES SHE HAS BEEN SHAKEY ALL DAY, HAS HAD RINGING IN HER EARS SINCE THIS MORNING AND HER HANDS AND FEET FEEL TINGLY AND SHE HAS HAD A HEADACHE SINCE THIS MORNING SHE HAS HTN, AND TOOK LISINOPRIL THIS AM SHE ALSO HAS ANXIETY AND TOOK 1 BUSPAR AT 2100 NO DIFFICULTY WITH WALKING OR TALKING OR MOVING ARMS OR LEGS NO VISION CHANGES NO NAUSEA/VOMITING NO DIZZINESS OR SYNCOPE STATES SHE HAS NOT BEEN SLEEPING LATELY. PCP: DR. FULLER--LAST VISIT WAS 07/15/23. NEXT APPOINTMENT IS Friday08/12/23 Allergies and Home Medications Allergies Coded Allergies: Penicillins (Verified Allergy, Unknown, 10/07/06) Patient Home Medication List Home Medication List Reviewed: Yes Cefdinir (Cefdinir) 300 Mg Capsule, 300 MG PO BID Prescribed by: GATO CAT on 08/07/232 Clonidine HCl (Clonidine HCl) 0.1 Mg Tablet, (Reported) Entered as Reported by: ELLIOT ROLON on 12/08/212332 Cyclobenzaprine HCl (Cyclobenzaprine HCl) 10 Mg Tablet, 10 MG PO Q8H PRN for SPASMS Prescribed by: GATO CAT on 08/07/232 Hydrocodone/Acetaminophen (Hydrocodone-Acetamin 10-325 mg) 1 Each Tablet, (Reported) Entered as Reported by: ELLIOT ROLON on 12/08/212332 Lisinopril (Lisinopril) 20 Mg Tablet, (Reported) Entered as Reported by: ELLIOT ROLON on 12/08/21 2333 Methylprednisolone (Methylprednisolone Dose Pack) 4 Mg Tablet, 4 MG PO UD Prescribed by: Princess Carrizales on 10/20/22 1819 Naproxen (Naproxen) 500 Mg Tablet.dr, 500 MG PO BID Prescribed by: GATO CAT on 08/07/23 0003 Review of Systems Review of Systems Constitutional: see HPI EENTM: no symptoms reported Respiratory: no symptoms reported Cardiovascular: no symptoms reported Gastrointestinal: no symptoms reported Genitourinary: no symptoms reported Musculoskeletal: see HPI Skin: no symptoms reported Psychiatric/Neurological: See HPI Hematologic/Lymphatic: No Symptoms Reported Immunological/Allergic: no symptoms reported Past Anrzuai-Jqfvht-Rytgst Hx Patient Social History Tobacco Use?: Yes Tobacco type used: Cigarettes Smoking Status: Current Everyday Smoker Substance use?: No Alcohol Use?: Yes (HX OF ETOH USE) Immunizations Up To Date Tetanus Booster (TDap): Less than 5yrs Influenza Vaccine Up-to-Date: No; Not Current Seasonal Allergies Seasonal Allergies: No Past Medical History Surgery/Hospitalization HX: scoliosis, htn Surgeries: Yes Tubal Ligation Respiratory: No Cardiac: Yes Hypertension Neurological: No Genitourinary: No Gastrointestinal: No Musculoskeletal: Yes (CHRONIC NECK AND BACK PAIN ) Scoliosis, Chronic Back Pain Endocrine: No HEENT: No Cancer: No Psychosocial: Yes Sleep Difficulties, Anxiety Integumentary: No Physical Exam Vital Signs Capillary Refill : Less Than 3 Seconds Height, Weight, BMI Height: 5'3.00" Weight: 145lbs. oz. 65.538818nu; 28.00 BMI Method:Stated General Appearance: No Apparent Distress, WD/WN, Anxious, Other (ANXIOUS, "SOBBING"--NO TEARS, DRAMATIC. ) HEENT: PERRL/EOMI, TMs Normal, Normal ENT Inspection, Pharynx Normal Neck: Full Range of Motion, Normal Inspection, Non Tender, Supple; No Carotid Bruit, No JVD Respiratory: Normal Breath Sounds, No Accessory Muscle Use, No Respiratory Di stress Cardiovascular: Regular Rate, Rhythm, No Edema, No JVD, No Murmur, Normal Peripheral Pulses Gastrointestinal: Non Tender, Soft Back: No CVA Tenderness, No Vertebral Tenderness Extremity: Normal Capillary Refill, Normal Inspection, Normal Range of Motion, Non Tender, No Calf Tenderness, No Pedal Edema, Other (DTR'S INTACT/EQUAL) Neurologic/Psychiatric: Alert, Oriented x3, No Motor/Sensory Deficits, 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 II- XII Norm as Tested; No Abnormal Cerebellar Tests Skin: Normal Color, Warm/Dry; No Rash Progress/Results/Core Measures Suspected Sepsis SIRS Temperature: Pulse: 104 Respiratory Rate: 20 Laboratory Tests 08/06/23 23:05: White Blood Count 9.4 Blood Pressure 185 /107 Mean: 133 Laboratory Tests 08/06/23 23:05: Creatinine 0.82, Platelet Count 304, Total Bilirubin 0.4 Results/Orders Lab Results Laboratory Tests Test 08/06/23 23:00 08/06/23 23:05 Range/Units Urine Color YELLOW Urine Clarity CLEAR Urine pH 5.5 5-9 Urine Specific [place] <=1.005 1.016-1.022 Urine Protein NEGATIVE NEGATIVE Urine Glucose (UA) NEGATIVE NEGATIVE Urine Ketones NEGATIVE NEGATIVE Urine Nitrite NEGATIVE NEGATIVE Urine Bilirubin NEGATIVE NEGATIVE Urine Urobilinogen 0.2 < = 1.0 MG/DL Urine Leukocyte Esterase 2+ H NEGATIVE Urine RBC (Auto) TRACE H NEGATIVE Urine RBC NONE /HPF Urine WBC 5-10 H /HPF Urine Squamous Epithelial Cells 2-5 /HPF Urine Crystals NONE /LPF Urine Bacteria FEW H /HPF Urine Casts NONE /LPF Urine Mucus NEGATIVE /LPF Urine Trichomonas FEW H /HPF Urine Culture Indicated YES Urine Opiates Screen NEGATIVE NEGATIVE Urine Oxycodone Screen NEGATIVE NEGATIVE Urine Methadone Screen NEGATIVE NEGATIVE Urine Barbiturates Screen NEGATIVE NEGATIVE Ur Tricyclic Antidepressants Screen NEGATIVE NEGATIVE Urine Phencyclidine Screen NEGATIVE NEGATIVE Urine Amphetamines Screen NEGATIVE NEGATIVE Urine Methamphetamines Screen NEGATIVE NEGATIVE Urine Benzodiazepines Screen NEGATIVE NEGATIVE Urine Cocaine Screen NEGATIVE NEGATIVE Urine Cannabinoids Screen NEGATIVE NEGATIVE White Blood Count 9.4 4.3-11.0 10^3/uL Red Blood Count 4.40 3.80-5.11 10^6/uL Hemoglobin 14.6 11.5-16.0 g/dL Hematocrit 42 35-52 % Mean Corpuscular Volume 95 80-99 fL Mean Corpuscular Hemoglobin 33 25-34 pg Mean Corpuscular Hemoglobin Concent 35 32-36 g/dL Red Cell Distribution Width 12.0 10.0-14.5 % Platelet Count 304 130-400 10^3/uL Mean Platelet Volume 10.5 9.0-12.2 fL Immature Granulocyte % (Auto) 0 % Neutrophils (%) (Auto) 62 42-75 % Lymphocytes (%) (Auto) 29 12-44 % Monocytes (%) (Auto) 7 0-12 % Eosinophils (%) (Auto) 2 0-10 % Basophils (%) (Auto) 1 0-10 % Neutrophils # (Auto) 5.8 1.8-7.8 10^3/uL Lymphocytes # (Auto) 2.7 1.0-4.0 10^3/uL Monocytes # (Auto) 0.7 0.0-1.0 10^3/uL Eosinophils # (Auto) 0.1 0.0-0.3 10^3/uL Basophils # (Auto) 0.1 0.0-0.1 10^3/uL Immature Granulocyte # (Auto) 0.0 0.0-0.1 10^3/uL Sodium Level 136 135-145 MMOL/L Potassium Level 3.6 3.6-5.0 MMOL/L Chloride Level 102 98-107 MMOL/L Carbon Dioxide Level 23 21-32 MMOL/L Anion Gap 11 5-14 MMOL/L Blood Urea Nitrogen 7 7-18 MG/DL Creatinine 0.82 0.60-1.30 MG/DL Estimat Glomerular Filtration Rate 88 BUN/Creatinine Ratio 9 Glucose Level 115 H 70-105 MG/DL Calcium Level 9.3 8.5-10.1 MG/DL Corrected Calcium 8.5-10.1 MG/DL Magnesium Level 2.3 1.6-2.4 MG/DL Total Bilirubin 0.4 0.1-1.0 MG/DL Aspartate Amino Transf (AST/SGOT) 14 5-34 U/L Alanine Aminotransferase (ALT/SGPT) 15 0-55 U/L Alkaline Phosphatase 63 40-136 U/L Total Protein 8.0 6.4-8.2 GM/DL Albumin 4.8 H 3.2-4.5 GM/DL TSH [place] Testing 2.21 0.35-4.94 UIU/ML My Orders Orders - GATO CAT DO Ed Iv/Invasive Line Start (08/06/23 22:40) Monitor-Rhythm Ecg Trace Only (08/06/23 22:40) Cbc And Automated Diff (08/06/23 22:40) Comprehensive Metabolic Panel (08/06/23 22:40) Magnesium (08/06/23 22:40) Thyroid Analyzer (08/06/23 22:40) Ua Culture If Indicated (08/06/23 22:40) Drug Screen Stat (Urine) (08/06/23 22:48) Ct Head Wo-R/O Stroke (08/06/23 22:48) Urine Bedside (08/06/23 23:03) Urine Culture (08/06/23 23:00) Ceftriaxone Iv/Im (Ceftriaxone Iv/Im) (08/07/23 00:00) Ketorolac Injection (Ketorolac Injection (08/07/23 00:00) Rx-Cyclobenzaprine Tablet (Rx-Flexeril T (08/07/23 00:00) Rx-Naproxen (Rx-Naprosyn) (08/07/23 00:00) Rx-Cefdinir Capsule (Rx-Omnicef Capsule) (08/07/23 09:00) Rx-Cefdinir Capsule (Rx-Omnicef Capsule) (08/07/23 00:13) Medications Given in ED Current Medications Medications Dose Ordered Sig/Joanna Route Start Time Stop Time Status Last Admin Dose Admin Ceftriaxone Sodium 1000 mg/ Sodium Chloride 50 ml @ 100 mls/hr ONCE ONCE IV 08/07/23 00:00 08/07/23 00:29 DC 08/07/23 00:18 100 MLS/HR Ketorolac Tromethamine 30 mg ONCE ONCE IVP 08/07/23 00:00 08/07/23 00:02 DC 08/07/23 00:18 30 MG Vital Signs/I&O Capillary Refill : Less Than 3 Seconds Blood Pressure Mean: 133 Progress Note : Progress Note GIVEN: -ROCEPHIN -TORADOL LABS: -CBC NORMAL -CMP NORMAL -MG NORMAL -TSH NORMAL -UA 2+ LEUKOCYTES, 5-10 WBC, FEW BACTERIA--URINE CULTURE PENDING -UDS NEGATIVE, INCLUDING NEGATIVE FOR OPIATES CT SCAN OF HEAD NEGATIVE NO DETERIORATION IN PT'S CONDITION DURING ER STAY SYMPTOMS IMPROVED AT DISMISSAL BP DOWN AT DISMISSAL, WITHOUT TREATMENT DISCUSSED TEST RESULTS, ANTICIPATED COURSE, SYMPTOMATIC TREATMENT, MEDICATIONS, NEED FOR FOLLOW UP AND RETURN PRECAUTIONS Diagnostic Imaging Comments CT HEAD--NO ACUTE PROCESS, PER [facility] RADIOLOGIST VIA PHONE AT [phone] AND VIA FAX AT [phone] Reviewed: Reviewed by Me, Discussed w/Radiologist Departure Impression Primary Impression: Chronic pain Additional Impressions: Anxiety HTN (hypertension) UTI (urinary tract infection) Disposition: HOME, SELF-CARE Condition: Improved Departure-Patient Inst. Decision time for Depature: 00:02 Referrals: SIMONE EDMONDSON DO (PCP/Family) Primary Care Physician Patient Instructions: Urinary Tract Infection, Adult ED, Anxiety, Adult ED, High Blood Pressure ED, CHRONIC PAIN Add. Discharge Instructions: CONTINUE YOUR MEDICATIONS PRESCRIBED KEEP YOUR APPOINTMENT WITH YOUR DR NEXT WEEK All discharge instructions reviewed with patient and/or family. Voiced understanding. Scripts Naproxen (Naproxen) 500 Mg Tablet.dr 500 MG PO BID, #20 TAB Prov: GATO CAT DO 08/07/23 Cyclobenzaprine HCl (Cyclobenzaprine HCl) 10 Mg Tablet 10 MG PO Q8H PRN for SPASMS, #15 TAB 0 Refills Prov: GATO CAT DO 08/07/23 Cefdinir (Cefdinir) 300 Mg Capsule 300 MG PO BID, #20 CAP Prov: GATO CAT DO 08/07/23 GATO CAT DO Aug 06, 2023 22:57
[2023-08-06 23:15] LABS: BASOPHILS # (AUTO) 0.1 10^3/uL (0.0-0.1); BASOPHILS % (AUTO) 1 % (0-10); EOSINOPHILS # (AUTO) 0.1 10^3/uL (0.0-0.3); EOSINOPHILS % (AUTO) 2 % (0-10); HEMATOCRIT 42 % (35-52); HEMOGLOBIN 14.6 g/dL (11.5-16.0); LYMPHOCYTES # (AUTO) 2.7 10^3/uL (1.0-4.0); LYMPHOCYTES % (AUTO) 29 % (12-44); MEAN CORPUSCULAR HEMOGLOBIN 33 pg (25-34); MEAN CORPUSCULAR HGB CONC 35 g/dL (32-36); MEAN CORPUSCULAR VOLUME 95 fL (80-99); MEAN PLATELET VOLUME 10.5 fL (9.0-12.2); MONOCYTES # (AUTO) 0.7 10^3/uL (0.0-1.0); MONOCYTES % (AUTO) 7 % (0-12); NEUTROPHILS # (AUTO) 5.8 10^3/uL (1.8-7.8); NEUTROPHILS % (AUTO) 62 % (42-75); PLATELET COUNT 304 10^3/uL (130-400); WHITE BLOOD COUNT 9.4 10^3/uL (4.3-11.0)
[2023-08-06 23:18] LABS: BACTERIA,URINE FEW /HPF; BILIRUBIN,URINE NEGATIVE (NEGATIVE); CLARITY,URINE CLEAR; COLOR,URINE YELLOW; GLUCOSE, URINE (UA) NEGATIVE (NEGATIVE); KETONES,URINE NEGATIVE (NEGATIVE); LEUKOCYTE ESTERASE ,URINE 2+ (NEGATIVE); NITRITE,URINE NEGATIVE (NEGATIVE); PH,URINE 5.5 (5-9); PROTEIN,URINE NEGATIVE (NEGATIVE); TRICHOMONAS,URINE FEW /HPF
[2023-08-06 23:19] LABS: AMPHETAMINE SCREEN, URINE NEGATIVE (NEGATIVE); BARBITURATE SCREEN URINE NEGATIVE (NEGATIVE); CANNABINOID SCREEN, URINE NEGATIVE (NEGATIVE); COCAINE SCREEN URINE NEGATIVE (NEGATIVE); METHADONE STAT NEGATIVE (NEGATIVE); OPIATE SCREEN URINE NEGATIVE (NEGATIVE); OXYCODONE STAT NEGATIVE (NEGATIVE); TRICYCLIC ANTIDEPRESSANTS SCRE NEGATIVE (NEGATIVE)
[2023-08-06 23:22] LABS: ALBUMIN 4.8 GM/DL (3.2-4.5); CHLORIDE 102 MMOL/L (98-107); POTASSIUM 3.6 MMOL/L (3.6-5.0); SODIUM 136 MMOL/L (135-145)
[2023-08-06 23:23] LABS: CALCIUM 9.3 MG/DL (8.5-10.1)
[2023-08-06 23:24] LABS: GLUCOSE 115 MG/DL (70-105)
[2023-08-06 23:25] LABS: CARBON DIOXIDE 23 MMOL/L (21-32)
[2023-08-06 23:26] LABS: BILIRUBIN,TOTAL 0.4 MG/DL (0.1-1.0)
[2023-08-06 23:28] LABS: ALKALINE PHOSPHATASE 63 U/L (40-136); CREATININE SERUM 0.82 MG/DL (0.60-1.30); GFR ESTIMATED 88
[2023-08-06 23:29] LABS: BUN/CREATININE RATIO 9
[2023-08-06 23:31] LABS: ALANINE AMINOTRANSFERASE 15 U/L (0-55); MAGNESIUM 2.3 MG/DL (1.6-2.4)
[2023-08-06 23:51] LABS: TSH (THYROID ANALYZER) 2.21 UIU/ML (0.35-4.94)
[2023-08-07] MEDS ORDERED: cefTRIAXone IV/IM 1,000 MG in NS (IVPB) 50 ML 50 ML IV ONE ×2
[2023-08-07] MEDS ORDERED: RX-CYCLOBENZAPRINE 10 MG (FLEXERIL) TAB PPK#3 PO STA
[2023-08-07] MEDS ORDERED: KETOROLAC INJ 30 MG/ML VIAL IVP ONE
[2023-08-07] MEDS ORDERED: RX-NAPROXEN (NAPROSYN) 250 MG TAB PPK#4 PO STA
[2023-08-07] MEDS ORDERED: NAPR500T8 PO (00:03)
[2023-08-07] MEDS ORDERED: CEFD300C3 PO (00:03)
[2023-08-07] MEDS ORDERED: CYCL10TA25 PO (00:03)
[2023-08-07] MEDS ORDERED: RX-CEFDINIR 300 MG CAP PPK #2 PO ONE (00:13)
[2023-08-07 00:37] VITALS: BP 127/89
--- NOTE | 2023-08-07 06:13 | Diagnostic Imaging Report ---
CLINICAL INDICATION: Patient complains of ringing in ears since this morning. Patient is crying stating I have nerve pain. Exam: Axial CT scan of the brain without IV contrast with coronal and sagittal reformatted images. Auto Exposure Controls were utilized during the CT exam to meet ALARA standards for radiation dose reduction. Comparison: None Findings: There is no evidence of acute cerebral infarct, intracranial hemorrhage, or gross mass effect. Cerebellar tonsillar ectopia is seen with cerebellar tonsils roughly 4 mm below level of the foramen magnum. Likely prominent perivascular space beneath the left basal ganglia region. The brain parenchymal volume appears appropriate for patient's age. There is normal avina-white matter distinction. There is no significant midline shift or herniation. There is no evidence of hydrocephalus. The basal cisterns are unremarkable. The skull, extracranial soft tissue, and orbits are unremarkable. The paranasal sinuses are unremarkable. Temporal bones show no significant abnormality. Impression: 1: There is no CT evidence of acute intracranial process. 2: Cerebellar tonsillar ectopia. I agree with [facility] report. Results of this report, regarding no acute abnormality, was called to Dr. Nunez on 08/06/2023 at 2352 by the [facility] radiologist. Dictated by: Dictated on workstation # [id number]
[2023-08-07] MEDS ORDERED: RX-CEFDINIR 300 MG CAP PPK #2 PO SCH (09:00)
== END 2023-08-07 00:37 | disposition home or self-care (01) ==
LOC: EDUNIT# 22:28 → ER 22:32
DX: G89.29 Other chronic pain (principal); M54.2 Cervicalgia; M54.9 Dorsalgia, unspecified; I10 Essential (primary) hypertension; F41.9 Anxiety disorder, unspecified; N39.0 Urinary tract infection, site not specified; F17.210 Nicotine dependence, cigarettes, uncomplicated; Z79.899 Other long term (current) drug therapy; Z88.0 Allergy status to penicillin
CPT/HCPCS: 36415; 70450; 80053; 80306; 81000; 83735; 84443; 84703; 85025; 87088; 93041